=== PATIENT | male | born 1990 | race Caucasian/White ===

== ENCOUNTER 2017-08-17 09:16 | Emergency (ER) | payer SELFPAY ==
[2017-08-17 09:30] VITALS: TEMP 98.4; O2SAT 96
--- NOTE | 2017-08-17 09:36 | CPEKG ---
Heart Rate: 74 RR Interval: 811 P-R Interval: 136 QRSD Interval: 100 QT Interval: 384 QTC Interval: 426 P [place]: 49 QRS [place]: 55 T Wave [place]: 36 EKG Severity - OTHERWISE NORMAL ECG - EKG Impression: SINUS ARRHYTHMIA, RATE 57-84 Electronically Signed By: Se Call 17-Aug-2017 15:07:57
--- NOTE | 2017-08-17 10:01 | EDPHY ---
H & P Stated Complaint: CP Time Seen by Provider: 08/17/17 10:01 Source: Patient Exam Limitations: No limitations - Personal History Current Tetanus/Diphtheria Vaccine: Unsure - Medical/Surgical History Hx Asthma: No Hx Chronic Respiratory Disease: No Hx Diabetes: No Hx Cardiac Disease: No Hx Renal Disease: No Hx Cirrhosis: No Hx Alcoholism: No Hx HIV/AIDS: No Hx Splenectomy or Spleen Trauma: No Other PMH: DENIES - Social History Smoking Status: Never smoked Constitutional: Initial Vital Signs Temperature (C) 36.9 C 08/17/17 09:29 Heart Rate 90 08/17/17 09:29 Respiratory Rate 16 08/17/17 09:29 Blood Pressure 160/100 H 08/17/17 09:29 O2 Sat (%) 96 08/17/17 09:29 O2 Delivery Mode Room Air Allergies/Adverse Reactions: No Known Allergies Allergy (Unverified 12/01/15 12:33) Home Medications: Medication Instructions Recorded oxyCODONE/APAP 5/325 [Percocet 1 tab PO Q6 #10 tab 12/01/15 5/325] Ibuprofen [Motrin] 800 mg PO Q8 #20 tab 08/17/17 Medical Decision Making - Diagnostics Imaging Results: Imaging Impressions Chest X-Ray 08/17/17 10:11 Impression: Normal. Clear lungs. Imaging: Discussed imaging studies w/ weight caller Radiologist, I viewed and interpreted images myself ED Course/Re-evaluation: CHIEF COMPLAINT: Chest pain HISTORY OF PRESENT ILLNESS: The patient is a 27-year-old male presenting with acute chest pain. The patient admits to cocaine use 12 hours ago. He developed chest pain 2 hours after using cocaine. He reports left sided chest pressure that radiates down his left arm. He has dyspnea and worsening pain with exertion. REVIEW OF SYSTEMS: A 10 point review of systems was performed and is negative with the exception of the elements mentioned in the history of present illness. PHYSICAL EXAM: HR, BP, O2 Sat, RR. Temp noted General Appearance: Alert, well hydrated, appropriate, and non-toxic appearing. Head: Atraumatic without scalp tenderness or obvious injury Eyes: Pupils equal, round, reactive to light and accommodation, EOMI, no trauma , no injection. Neck: Supple, 2+ carotid upstroke, nontender, no lymphadenopathy. Respiratory: No retractions, no distress, no wheezes, and no accessory muscle use. Lungs are clear to auscultation bilaterally. Cardiovascular: Regular rate and rhythm, no murmurs, rubs, or gallops. Bilateral carotid, radial, dorsalis pedis, and posterior tibial pulses intact. Good capillary refill all extremities. Gastrointestinal: Abdomen is soft, nontender, non-distended, no masses, no rebound, no guarding, no peritoneal signs. Musculoskeletal: Normal active ROM of all extremities, atraumatic. Neurological: Alert, appropriate, and interactive. The patient has normal DTRs and non-focal cranial nerves, motor, sensory, and cerebellar exam. Skin: No rashes, good turgor, no nodules on palpation. Past medical history: Denies Past surgical history: Denies Family history: No cardiac history. Social history: Cocaine use. Marijuana use. DIAGNOSTICS/PROCEDURES/CRITICAL CARE TIME: The 12 lead EKG was interpreted by me shows normal sinus rhythm. No signs of ischemia. See hard copy and/or "tracemaster" electronic copy for interpretation. Chest x-ray is negative for acute disease. Echocardiogram is normal. DIFFERENTIAL DIAGNOSIS: The differential diagnosis for the patient's chest pain included but was not limited to myocardial ischemia, pulmonary embolus, chest wall pain, pleural inflammation, and pulmonary infectious causes. MEDICAL DECISION MAKING: Patient presents with acute chest pain that developed after using cocaine 12 hours ago. His EKG is normal. I ordered chest x-ray, labs and echocardiogram to look for cardiomyopathy. Troponin is normal. Chest x-ray is normal. Echo is pending. The patient has a normal echocardiogram. The patient has received a significant cardiac work up and was ruled out for acute cardiomyopathy. Patient is likely having atypical chest pain. I believe the patient is safe to go home. I recommend Ibuprofen for recurrent chest pain. I discussed with the patient that cocaine can cause myocardial infarction and recommend the patient stops using cocaine. The patient understands and agrees with the plan to go home. Strict return precautions given. - Data Points Laboratory Results: Laboratory Results 08/17/17 09:40 08/17/17 09:40 08/17/17 08/17/17 08/17/17 09:40 09:40 09:40 WBC RBC Hgb Hct MCV MCH MCHC RDW Plt Count MPV Neut % (Auto) Lymph % (Auto) [place] % (Auto) Eos % (Auto) Baso % (Auto) Nucleat RBC Rel Count Absolute Neuts (auto) Absolute Lymphs (auto) Absolute Monos (auto) Absolute Eos (auto) Absolute Basos (auto) Absolute Nucleated RBC Immature Gran % Immature Gran # D-Dimer < 0.27 ug/mLFEU ug/mLFEU (0.00-0.50) Sodium 141 mEq/L mEq/L (135-145) Potassium 3.8 mEq/L mEq/L (3.5-5.2) Chloride 103 mEq/L mEq/L (97-110) Carbon Dioxide 21 mEq/l L mEq/l (22-31) Anion Gap 17 mEq/L H mEq/L (8-16) BUN 12 mg/dL mg/dL (7-23) Creatinine 0.8 mg/dL mg/dL (0.7-1.3) Estimated GFR > 60 Glucose 103 mg/dL H mg/dL (70-100) Calcium 10.0 mg/dL mg/dL (8.5-10.4) Troponin I < 0.012 ng/mL ng/mL (0.000-0.034) NT-Pro-B Natriuret Pep 26 pg/mL pg/mL (0-125) 08/17/17 09:40 WBC 8.76 10^3/uL 10^3/uL (3.80-9.50) RBC 5.40 10^6/uL 10^6/uL (4.40-6.38) Hgb 16.8 g/dL g/dL (13.7-17.5) Hct 46.4 % % (40.0-51.0) MCV 85.9 fL fL (81.5-99.8) MCH 31.1 pg pg (27.9-34.1) MCHC 36.2 g/dL g/dL (32.4-36.7) RDW 12.4 % % (11.5-15.2) Plt Count 230 10^3/uL 10^3/uL (150-400) MPV 10.7 fL fL (8.7-11.7) Neut % (Auto) 72.5 % % (39.3-74.2) Lymph % (Auto) 18.3 % % (15.0-45.0) [place] % (Auto) 7.9 % % (4.5-13.0) Eos % (Auto) 0.3 % L % (0.6-7.6) Baso % (Auto) 0.5 % % (0.3-1.7) Nucleat RBC Rel Count 0.0 % % (0.0-0.2) Absolute Neuts (auto) 6.36 10^3/uL 10^3/uL (1.70-6.50) Absolute Lymphs (auto) 1.60 10^3/uL 10^3/uL (1.00-3.00) Absolute Monos (auto) 0.69 10^3/uL 10^3/uL (0.30-0.80) Absolute Eos (auto) 0.03 10^3/uL 10^3/uL (0.03-0.40) Absolute Basos (auto) 0.04 10^3/uL 10^3/uL (0.02-0.10) Absolute Nucleated RBC 0.00 10^3/uL 10^3/uL (0-0.01) Immature Gran % 0.5 % % (0.0-1.1) Immature Gran # 0.04 10^3/uL 10^3/uL (0.00-0.10) D-Dimer Sodium Potassium Chloride Carbon Dioxide Anion Gap BUN Creatinine Estimated GFR Glucose Calcium Troponin I NT-Pro-B Natriuret Pep Departure - Departure Disposition: Home, Routine, Self-Care Clinical Impression: Atypical chest pain Condition: Good Instructions: Chest Pain (ED) Additional Instructions: I recommend 800mg Ibuprofen every 6-8 hours as needed for pain. Return to the Emergency Department with new or worsening symptoms. [facility] has walk-in appointments for the homeless at the following days/locations. No appointment is needed. Friday 8-10 am @ [facility] 11 AM-1 PM @ [facility] Friday 8-10:30 AM @ [facility] Friday 8-10 AM @ [facility] 2-4 PM @ [facility] Friday 8-10 AM @ [facility] Referrals: [facility],. [Clinic] - As per Instructions Prescriptions: Ibuprofen [Motrin] 800 mg PO Q8 #20 tab Report Scribed for: Se Call Report Scribed by: Melissa Son Date of Report: 08/17/17 Time of Report: 10:12
[2017-08-17 10:14] LABS: PLATELET COUNT 230 10^3/uL (150-400)
[2017-08-17 12:43] VITALS: BP 156/88; PULSE 78; RESP 15
--- NOTE | 2017-08-17 13:19 | ECHO ---
[email or web address] [address] Main: [phone] Fax: Transthoracic Echocardiogram Name: DEE DEE RODRIGUEZ MR#: [id number] Study Date: 08/17/2017 Study Time: 11:40 AM Date of : 1990 Age: 27 year(s) Height: 177.8 cm (70 in.) Weight: 74.84 kg (165 lb.) BSA: 1.92 m2 Gender: Male Examination: Echo Indication: Image Quality: Adequate Contrast: Requested by: Se Call BP: 135 mmHg/101 mmHg Heart Rate: Rhythm: Indication: Procedure Staff Field Aide: Joanie Younger Reading Physician: Adebayo Fajardo Requesting Provider: Conclusions: Normal global systolic LV function. Diastolic LV function normal for age. Normal RV function. Normal study Measurements: Chambers Valvular Assessment AV/MV Valvular Assessment TV/PV Normal Normal Normal Name Value Range Name Value Range Name Value Range IVSd (2D): 1.1 cm (0.6 cm-1.1 AV Vmax: 1.00 m/s (1 m/s-1.7 PV Vmax: 0.96 m/s (0.6 m/s-0.9 cm) m/s) m/s) LVDd (2D): 4.4 cm (4.2 cm-5.9 AV maxP mmHg ( - ) PV PGmax: 4 mmHg ( - ) cm) AV meanP mmHg ( - ) LVDs (2D): 2.6 cm (2.1 cm-4 LVOT Vmax: 0.89 m/s (0.7 m/s-1.1 cm) m/s) LVPWd (2D): 0.9 cm (0.6 cm-1 MV E Vmax: 0.50 m/s ( - ) cm) MV A Vmax: 0.38 m/s ( - ) LVEF (BP): 70 % (>=55 %) MV E/A: 1.32 ( - ) Continued Measurements: Chambers Valvular Assessment AV/MV Name Value Name Value LADs Lon.3 cm MV DecTime: 254 m/s LA Area: 10.3 cm2 MV E/E' Septal: 5.10 LA Volume: 24 ml MV E/E' Lateral: 4.10 LA Volume Index: 12.5 ml/m2 TAPSE: 1.8 cm Patient: DEE DEE RODRIGUEZ Study Date: 08/17/2017 Page 1 of 2 11:40 AM Additional Vessels Name Value Ao Ascendin.8 cm Findings: Left Ventricle: Normal size left ventricle. Normal global systolic LV function. EF is 70 %. No regional wall motion abnormality. Diastolic LV function normal for age. Right Ventricle: Normal size right ventricle. Normal RV function. Left Atrium: The left atrium is normal in size. Right Atrium: The right atrium is normal in size. Mitral Valve: The mitral valve is normal in appearance and function. There is no significant mitral valve regurgitation. No mitral stenosis is present. Aortic Valve: The aortic valve is normal in appearance and function. There is no aortic valve regurgitation. No aortic valve stenosis is present. Tricuspid Valve: The tricuspid valve is normal in appearance and function. There is no significant tricuspid valve regurgitation. Pulmonic Valve: Pulmonary valve not well visualized. Trivial pulmonic valve regurgitation. Aorta: Normal size ascending aorta measuring 2.8 cm. IVC: Normal size and course of the IVC. Pericardium: No pericardial effusion. (No Signature Object) Patient: DEE DEE RODRIGUEZ Study Date: 08/17/2017 Page 2 of 2 11:40 AM [id number]
== END 2017-08-17 12:43 | disposition home or self-care (01) ==
DX: R07.89 Other chest pain (principal)